=== PATIENT | male | born 1955 | race African-American/Black ===

== ENCOUNTER 2025-06-30 07:02 | Day surgery (SDC) | payer MEDICARE, MEDICAID ==
[~2025-06-30] VITALS: Ht 185.4 cm; Wt 102.3 kg
[~2025-06-30 07:02] MED LIST: CYCLOPENTOLATE HCL 1% 2 ML OPHTHALMIC SOLUTION ONE; KETOROLAC TROMETHAMINE 0.5% 5 ML OPHTHALMIC SOLUTION ONE; LIDOCAINE/PF 1% 2 ML VIAL ONE; MOXIFLOXACIN HCL 0.5% 3 ML OPHTHALMIC SOLUTION ONE; PHENYLEPHRINE HCL 2.5% 2 ML OPHTHALMIC SOLUTION ONE; PrednisoLONE ACETATE 1% 5 ML OPHTHALMIC SUSPENSION ONE; RINGERS SOLUTION,LACTATED 500 ML IV ONE; TETRACAINE HCL/PF 0.5% 4 ML OPHTHALMIC SOLUTION ONE; TROPICAMIDE 1% 3 ML OPHTHALMIC SOLUTION ONE
[2025-06-30] MEDS: CYCLOPENTOLATE HCL 1% 2 ML OPHTHALMIC SOLUTION OD SCH (07:16)
[2025-06-30] MEDS: MOXIFLOXACIN HCL 0.5% 3 ML OPHTHALMIC SOLUTION OD SCH (07:16)
[2025-06-30] MEDS: PHENYLEPHRINE HCL 2.5% 2 ML OPHTHALMIC SOLUTION OD SCH (07:16)
[2025-06-30] MEDS: TETRACAINE HCL/PF 0.5% 4 ML OPHTHALMIC SOLUTION OD ONE (07:17)
[2025-06-30] MEDS: KETOROLAC TROMETHAMINE 0.5% 5 ML OPHTHALMIC SOLUTION OD SCH (07:17)
[2025-06-30] MEDS: TROPICAMIDE 1% 3 ML OPHTHALMIC SOLUTION OD SCH (07:17)
[2025-06-30] MEDS: PROPARACAINE HCL 0.5% 15 ML OPHTHALMIC SOLUTION OD ONE (07:18)
[2025-06-30] MEDS: RINGERS SOLUTION,LACTATED 500 ML IV ONE (07:21)
[2025-06-30] MEDS: TETRACAINE HCL/PF 0.5% 4 ML OPHTHALMIC SOLUTION OD SCH (07:27)
[2025-06-30] MEDS: PROPARACAINE HCL 0.5% 15 ML OPHTHALMIC SOLUTION ONE (07:43)
[2025-06-30] MEDS: POVIDONE-IODINE 5% 30 ML OPHTHALMIC SOLUTION ONE (08:00)
[2025-06-30] MEDS: LIDOCAINE/PF 1% 2 ML VIAL ONE (08:03)
[2025-06-30] MEDS: BALANCED SALT 15 ML OPHTHALMIC IRRIG.SOLN ONE (08:05)
[2025-06-30] MEDS: EPINEPHrine 1:1,000 [1 MG/ML] VIAL ONE (08:06)
[2025-06-30] MEDS: NEOMYCIN/POLYMYXIN B/DEXAMETH 3.5 GM OPHTHALMIC OINTMENT ONE (08:15)
[2025-06-30] MEDS ORDERED: FentaNYL CITRATE PF 100 MCG/2 ML VIAL ONE (12:00)
[2025-06-30] MEDS ORDERED: HYALURONATE SOD 8.5MG/0.85ML 10 MG/ML SYRINGE IO ONE (12:00)
[2025-06-30] MEDS ORDERED: MIDAZOLAM HCL 2 MG/2 ML VIAL ONE (12:00)
== END 2025-06-30 10:45 | disposition home or self-care (01) ==
LOC: SURGERY 07:02
PROVIDERS: ATTEND Ophthalmology
DX: H25.11 Age-related nuclear cataract, right eye (principal); H43.822 Vitreomacular adhesion, left eye; I13.10 Hypertensive heart and chronic kidney disease without heart failure, with stage 1 through stage 4 chronic kidney disease, or unspecified chronic kidney disease; N18.9 Chronic kidney disease, unspecified
CPT/HCPCS: 66984; J0169; J3010; J3490; J2250; J7120; V2632